=== PATIENT | female | born 1960 | race Caucasian/White ===

== ENCOUNTER 2018-05-21 14:32 | Emergency (ER) | payer BC ==
[~2018-05-21] VITALS: Ht 162.6 cm; Wt 72.7 kg
[2018-05-21] MEDS ORDERED: OMNICEF 300MG300 MG PO (14:57)
[2018-05-21] MEDS ORDERED: FLOXIN 10 ML10 ML OT (14:57)
[2018-05-21] MEDS ORDERED: CHERATUSSIN AC120 ML PO (16:12)
[2018-05-21 16:20] VITALS: BP 123/72; PULSE 100; TEMP 98.1
== END 2018-05-21 16:27 | disposition home or self-care (01) ==
LOC: COL.ER 14:32
DX: B34.9 Viral infection, unspecified (principal)
CPT/HCPCS: J2405; J7030